=== PATIENT | male | born 1940 | race Caucasian/White ===

== ENCOUNTER 2017-08-02 05:17 | Inpatient (IN) ==
[2017-07-20 14:09] LABS: Basophils # 0.1 10*3/uL (0.0-0.2); Basophils % 0.7 % (0.0-0.8); Eosinophils # 0.5 10*3/uL (0.0-0.87); Eosinophils % 6.1 % (0.00-10.9); Hematocrit 37.7 VOL% (42.0-52.0); Hemoglobin 12.7 GM/DL (14.0-18.0); Immature Granulocytes % 0.4 %; Immature Granulocytes Absolute 0.03 #; Lymphocytes # 1.5 10*3/uL (1.4-4.0); Mean Corpuscular HGB Conc 33.7 GM/DL (32-36); Mean Corpuscular Hemoglobin 31 PG (27-34); Mean Corpuscular Volume 90.4 FL (87-102); Mean Platelet Volume 9.3 FL (9.6-12.0); Monocytes # 0.8 10*3/uL (0.11-0.8); Monocytes % 10.8 % (1.7-12.7); Neutrophils # 4.6 10*3/uL (1.4-7.4); Platelet Count 266 T/CUMM (130-400); Red Blood Count 4.17 MC/CUMM (3.8-5.5); Red Cell Distribution Width 13.6 % (9.3-17.3); White Blood Count 7.4 T/CUMM (4-12)
[2017-07-20 14:39] LABS: Calcium 8.6 MG/DL (8.5-10.1); Osmolality,Calculated 278.5 MOS/KG (273-304)
[2017-07-20 14:51] LABS: Apearance,Urine Clear (Clear); Bilirubin,Urine Negative (Negative); Blood, Urine Large mg/dL (Negative); Glucose,Urine (UA) Negative (Negative); Ketones,Urine Negative (Negative); Nitrite,Urine Negative (Negative); Protein,Urine Negative; RBC,Urine 25-30 /HPF (0-4); Urine Color Yellow (Yellow); Urine Specific Gravity 1.015 (1.001-1.035); Urine Urobilinogen 0.2 EU/DL (0.2-1.0); WBC,Urine 0-3 /HPF (0-6)
[~2017-08-02 05:17] MED LIST: ALBUTEROL/IPRATROPIUM 3 ML NEB RESP TX ONE
[2017-08-02] MEDS ORDERED: GABAPENTIN 400 MG CAPSULE PO ONE (06:00)
[2017-08-02] MEDS ORDERED: IPRATROPIUM 500 MCG/2.5 ML NEB RESP TX ONE (06:00)
[2017-08-02] MEDS ORDERED: SCOPOLAMINE 1.5 MG PATCH TRANSDERM ONE ×2 (06:00→06:18)
[2017-08-02] MEDS ORDERED: cefTRIAXone 1,000 MG in SYRINGE 1 EACH IV ONE (06:00)
[2017-08-02] MEDS ORDERED: DIAZEPAM 5 MG TABLET PO ONE (06:00)
[2017-08-02] MEDS ORDERED: ACETAMINOPHEN 500 MG TABLET PO ONE (06:00)
[2017-08-02] MEDS ORDERED: FAMOTIDINE 20 MG TABLET PO ONE (06:00)
[2017-08-02] MEDS ORDERED: DIAZEPAM 5 MG TABLET ONE (06:17)
[2017-08-02] MEDS ORDERED: ALVIMOPAN 12 MG CAPSULE ONE (06:17)
[2017-08-02] MEDS ORDERED: FAMOTIDINE 20 MG TABLET ONE (06:18)
[2017-08-02] MEDS ORDERED: cefTRIAXone 1,000 MG VIAL ONE (06:18)
[2017-08-02] MEDS ORDERED: ACETAMINOPHEN 500 MG TABLET ONE (06:18)
[2017-08-02] MEDS ORDERED: GABAPENTIN 400 MG CAPSULE ONE (06:29)
[2017-08-02] MEDS: ALVIMOPAN 12 MG CAPSULE PO SCH (06:42)
[2017-08-02] MEDS: LACTATED RINGERS 1,000 ML IV SCH (06:50)
[2017-08-02] MEDS ORDERED: diphenhydrAMINE 50 MG/1 ML VIAL IV PRN (11:05)
[2017-08-02] MEDS ORDERED: ONDANSETRON 4 MG/2 ML VIAL IV PRN (11:05)
[2017-08-02] MEDS ORDERED: HYDROmorphone PCA 30 MG/30 ML SYRINGE IV SCH (11:30)
[2017-08-02] MEDS ORDERED: NALOXONE 0.4 MG/ML VIAL IV PRN (11:50)
[2017-08-02] MEDS: DEXTROSE 5% NACL 0.45% 1,000 ML IV SCH (13:48)
[2017-08-02] MEDS: MORPHINE PCA 30 MG/30 ML SYRINGE IV SCH (13:59)
[2017-08-02] MEDS ORDERED: PROPOFOL 200 MG/20 ML VIAL IV ONE (15:14)
[2017-08-02] MEDS ORDERED: PHENYLEPHRINE 10 MG/1 ML VIAL IV ONE (15:14)
[2017-08-02] MEDS ORDERED: MIDAZOLAM 2 MG/2 ML VIAL ONE (15:14)
[2017-08-02] MEDS ORDERED: SODIUM CHLORIDE 0.9% 100 ML IV ONE (15:14)
[2017-08-02] MEDS ORDERED: SEVOFLURANE 1 UNIT/15 MINUTE INH ONE (15:14)
[2017-08-02] MEDS ORDERED: fentaNYL 100 MCG/2 ML VIAL ONE (15:14)
[2017-08-02] MEDS ORDERED: ONDANSETRON 4 MG/2 ML VIAL ONE (15:14)
[2017-08-02] MEDS ORDERED: ROCURONIUM 100 MG/10 ML VIAL IV ONE (15:14)
[2017-08-02] MEDS ORDERED: NEOSTIGMINE 10 MG/10 ML VIAL ONE (15:14)
[2017-08-02] MEDS ORDERED: GLYCOPYRROLATE 0.4 MG/2 ML VIAL ONE (15:14)
[2017-08-02] MEDS ORDERED: LACTATED RINGERS 1,000 ML IV ONE (15:15)
[2017-08-02] MEDS ORDERED: ALBUTEROL 0.63 MG/3 ML NEB RESP TX SCH (19:00)
[2017-08-02] MEDS: CARVEDILOL 3.125 MG TABLET PO SCH (19:00)
[2017-08-02] MEDS: BUDESONIDE 0.25 MG/2 ML NEB RESP TX SCH (19:36)
[2017-08-02] MEDS: ALBUTEROL/IPRATROPIUM 3 ML NEB RESP TX SCH (19:36)
[2017-08-02] MEDS ORDERED: diphenhydrAMINE CAP 25 MG CAPSULE PO SCH (21:00)
[2017-08-03] MEDS: ALBUTEROL/IPRATROPIUM 3 ML NEB RESP TX SCH ×5 (00:58→23:54)
[2017-08-03] MEDS: AZITHROMYCIN INJ 250 MG in SODIUM CHLORIDE 0.9% 250 ML IV SCH ×2 (02:51→23:23)
[2017-08-03] MEDS: DEXTROSE 5% NACL 0.45% 1,000 ML IV SCH (02:52)
[2017-08-03 06:59] LABS: Basophils % 0.2 % (0.0-0.8); Eosinophils % 0.1 % (0.00-10.9); Hematocrit 36.9 VOL% (42.0-52.0); Hemoglobin 11.9 GM/DL (14.0-18.0); Immature Granulocytes % 0.5 %; Immature Granulocytes Absolute 0.06 #; Lymphocytes # 1.2 10*3/uL (1.4-4.0); Lymphocytes % 10.4 % (21.2-54.2); Mean Corpuscular HGB Conc 32.2 GM/DL (32-36); Mean Corpuscular Hemoglobin 30 PG (27-34); Mean Corpuscular Volume 92.3 FL (87-102); Mean Platelet Volume 10.3 FL (9.6-12.0); Monocytes # 1.4 10*3/uL (0.11-0.8); Monocytes % 12.3 % (1.7-12.7); Neutrophils # 8.9 10*3/uL (1.4-7.4); Neutrophils % 76.5 % (38.7-73.9); Platelet Count 221 T/CUMM (130-400); Red Cell Distribution Width 13.7 % (9.3-17.3); White Blood Count 11.6 T/CUMM (4-12)
[2017-08-03 07:25] LABS: Calcium 7.8 MG/DL (8.5-10.1); Osmolality,Calculated 279.5 MOS/KG (273-304); Potassium 3.6 MMOL/L (3.5-5.1)
[2017-08-03 07:29] LABS: Albumin 3.2 G/DL (3.4-5.0); Bilirubin,Direct 0.17 MG/DL (0.0-0.20); Bilirubin,Indirect 0.5 MG/DL (0.0-1.0); Bilirubin,Total 0.7 MG/DL (0.2-1.0); Total Protein 5.5 G/DL (6.4-8.3)
[2017-08-03] MEDS: BUDESONIDE 0.25 MG/2 ML NEB RESP TX SCH ×2 (07:42→19:15)
[2017-08-03] MEDS: LACTATED RINGERS 1,000 ML IV SCH (08:50)
[2017-08-03] MEDS ORDERED: AZITHROMYCIN 250 MG TABLET PO SCH (09:00)
[2017-08-03] MEDS ORDERED: NON-FORMULARY MEDICATION (Umeclidinium Brm/Vilanterol Tr [Anoro Ellipta] 1 PUFF) INH SCH (09:00)
[2017-08-03] MEDS ORDERED: CHOLECALCIFEROL 1,000 UNIT TABLET PO SCH (09:00)
[2017-08-03] MEDS ORDERED: FOLIC ACID 1 MG TABLET PO SCH (09:00)
[2017-08-03] MEDS ORDERED: PANTOPRAZOLE 40 MG TABLET PO SCH (09:00)
[2017-08-03] MEDS: SERTRALINE 50 MG TABLET PO SCH (09:45)
[2017-08-03] MEDS: CARVEDILOL 3.125 MG TABLET PO SCH ×2 (09:45→17:20)
[2017-08-03] MEDS: SODIUM CHLORIDE 0.9% 1,000 ML IV SCH (09:49)
[2017-08-03] MEDS: MORPHINE PCA 30 MG/30 ML SYRINGE IV SCH (12:14)
[2017-08-03] MEDS: LORATADINE 10 MG TABLET PO SCH (20:02)
[2017-08-03] MEDS: ALVIMOPAN 12 MG CAPSULE PO SCH (20:02)
[2017-08-04] MEDS ORDERED: BISACODYL 10 MG SUPP RECTAL ONE (06:00)
[2017-08-04] MEDS: ALBUTEROL/IPRATROPIUM 3 ML NEB RESP TX SCH ×3 (06:57→19:07)
[2017-08-04] MEDS: BUDESONIDE 0.25 MG/2 ML NEB RESP TX SCH ×2 (06:57→19:08)
[2017-08-04] MEDS ORDERED: oxyCODONE/ACETAMINOPHEN 5-325 MG TABLET PO PRN ×2 (08:08)
[2017-08-04] MEDS ORDERED: MEPERIDINE 50 MG/1 ML VIAL IM PRN (08:10)
[2017-08-04] MEDS: SODIUM CHLORIDE 0.9% 1,000 ML IV SCH (08:14)
[2017-08-04] MEDS: ALVIMOPAN 12 MG CAPSULE PO SCH ×3 (10:37→19:59)
[2017-08-04] MEDS: CARVEDILOL 3.125 MG TABLET PO SCH ×2 (10:37→17:30)
[2017-08-04] MEDS: SERTRALINE 50 MG TABLET PO SCH (10:38)
[2017-08-04] MEDS: LORATADINE 10 MG TABLET PO SCH (19:59)
[2017-08-04] MEDS: AZITHROMYCIN INJ 250 MG in SODIUM CHLORIDE 0.9% 250 ML IV SCH (22:58)
[2017-08-05] MEDS: ALBUTEROL/IPRATROPIUM 3 ML NEB RESP TX SCH ×2 (00:30→07:35)
[2017-08-05 07:11] LABS: Albumin 2.5 G/DL (3.4-5.0); Bilirubin,Total 1.1 MG/DL (0.2-1.0); Calcium 8.2 MG/DL (8.5-10.1); Osmolality,Calculated 279.5 MOS/KG (273-304); Potassium 3.7 MMOL/L (3.5-5.1); Total Protein 5.8 G/DL (6.4-8.3)
[2017-08-05] MEDS: BUDESONIDE 0.25 MG/2 ML NEB RESP TX SCH (07:35)
[2017-08-05] MEDS ORDERED: OXYBUTYNIN XL 10 MG TABLET PO SCH (09:00)
[2017-08-05] MEDS: ALVIMOPAN 12 MG CAPSULE PO SCH (09:27)
[2017-08-05] MEDS: SERTRALINE 50 MG TABLET PO SCH (09:27)
[2017-08-05] MEDS: CARVEDILOL 3.125 MG TABLET PO SCH (09:27)
[2017-08-05 11:43] VITALS: BP 143/69
[2017-08-05] MEDS ORDERED: HEPARIN LOCK FLUSH 500 UNIT/5 ML SYRINGE IV ONE (13:58)
== END 2017-08-05 14:15 | disposition home health service (06) | DRG 657 ==
LOC: N.OR 05:17 → N.SDSINP 05:37 → N.5E 11:05
PROVIDERS: ADMIT Internal Medicine; ATTEND Internal Medicine

== ENCOUNTER 2019-07-22 10:17 | Inpatient (IN) ==
[2019-07-22] MEDS ORDERED: ALBUTEROL 2.5 MG/3 ML NEB RESP TX STA (10:35)
[2019-07-22 10:51] LABS: Basophils % 0.3 % (0.0-0.8); Eosinophils # 0.1 10*3/uL (0.0-0.87); Eosinophils % 1.2 % (0.00-10.9); Hematocrit 38.6 VOL% (42.0-52.0); Hemoglobin 11.9 GM/DL (14.0-18.0); Immature Granulocytes % 0.4 %; Immature Granulocytes Absolute 0.05 #; Lymphocytes # 1.2 10*3/uL (1.4-4.0); Lymphocytes % 9.9 % (21.2-54.2); Mean Corpuscular HGB Conc 30.8 GM/DL (32-36); Mean Platelet Volume 10.2 FL (9.6-12.0); Monocytes % 6.2 % (1.7-12.7); Platelet Count 214 T/CUMM (130-400); Red Blood Count 4.29 MC/CUMM (3.8-5.5); Red Cell Distribution Width 14.7 % (9.3-17.3); White Blood Count 11.6 T/CUMM (4-12)
[2019-07-22 10:56] LABS: ABG Base Excess -1.7 MMOL/L (-2.5-2.5); ABG HCO3 22.9 MMOL/L (20-26); ABG Oxygen Saturation 91.1 % (95-100); ABG PCO2 43.8 MM HG (35-48); ABG PH 7.348 (7.35-7.45); ABG PO2 63.4 MM HG (80-95); ABG TCO2 21.4 MMOL/L (23-27)
[2019-07-22 10:57] LABS: Allen Test Positive
[2019-07-22 11:00] LABS: PT Patient Result 10.4 SECS (9.8-11.9)
[2019-07-22] MEDS ORDERED: PIPERACILLIN/TAZOBACTAM 3,375 MG in SODIUM CHLORIDE 0.9% 100 ML IV STA ×2 (11:23→12:23)
[2019-07-22] MEDS ORDERED: VANCOMYCIN INJ 1,000 MG in SODIUM CHLORIDE 0.9% 250 ML IV STA (11:23)
[2019-07-22 11:25] LABS: Albumin 3.4 G/DL (3.4-5.0); Bilirubin,Total 0.6 MG/DL (0.2-1.0); Calcium 8.3 MG/DL (8.5-10.1); Osmolality,Calculated 271.1 MOS/KG (273-304); Total Protein 6.2 G/DL (6.4-8.3)
[2019-07-22] MEDS ORDERED: MORPHINE 4 MG/1 ML VIAL IV PRN (12:30)
[2019-07-22] MEDS ORDERED: MAGNESIUM SULF RIDER 2 GM in PREMIX 1 EACH IV PRN (12:30)
[2019-07-22] MEDS ORDERED: MAGNESIUM SULF RIDER 4 GM in PREMIX 1 EACH IV PRN (12:30)
[2019-07-22] MEDS ORDERED: ONDANSETRON 4 MG/2 ML VIAL IV PRN (12:30)
[2019-07-22] MEDS ORDERED: PIPERACILLIN/TAZOBACTAM 3,375 MG VIAL IV ONE (12:48)
[2019-07-22] MEDS ORDERED: SODIUM CHLORIDE 0.9% 100 ML IV ONE (12:49)
[2019-07-22] MEDS ORDERED: ALBUTEROL/IPRATROPIUM 3 ML NEB RESP TX SCH (15:00)
[2019-07-22] MEDS ORDERED: ASPIRIN CHEW 81 MG TABLET PO ONE (16:33)
[2019-07-22] MEDS ORDERED: BUDESONIDE 0.25 MG/2 ML NEB RESP TX SCH (19:00)
[2019-07-22] MEDS ORDERED: ENOXAPARIN 40 MG/0.4 ML SYRINGE SUBCUT SCH (21:00)
[2019-07-22] MEDS: carvediloL 6.25 MG TABLET PO SCH (21:55)
[2019-07-22] MEDS: POTASSIUM CHLORIDE 20 MEQ TABLET PO SCH (21:55)
[2019-07-22] MEDS: LORATADINE 10 MG TABLET PO SCH (21:55)
[2019-07-22] MEDS: ALBUTEROL INHALER 8 GM INH SCH (23:20)
[2019-07-23] MEDS: ALBUTEROL INHALER 8 GM INH SCH ×4 (02:07→20:25)
[2019-07-23 05:18] LABS: Risk Ratio 1.93; VLDL CHOLESTEROL 12.8 MG/DL
[2019-07-23] MEDS ORDERED: FUROSEMIDE 40 MG TABLET PO SCH (09:00)
[2019-07-23] MEDS: CYANOCOBALAMIN 500 MCG TABLET PO SCH (10:00)
[2019-07-23] MEDS: OXYBUTYNIN XL 10 MG TABLET PO SCH (10:00)
[2019-07-23] MEDS: SERTRALINE 50 MG TABLET PO SCH (10:00)
[2019-07-23] MEDS: POTASSIUM CHLORIDE 20 MEQ TABLET PO SCH ×2 (10:00→20:24)
[2019-07-23] MEDS: FOLIC ACID 0.4 MG TABLET PO SCH (10:00)
[2019-07-23] MEDS: carvediloL 6.25 MG TABLET PO SCH ×2 (10:00→20:24)
[2019-07-23] MEDS: ASPIRIN EC 81 MG TABLET PO SCH (10:00)
[2019-07-23] MEDS: PANTOPRAZOLE 40 MG TABLET PO SCH (10:00)
[2019-07-23] MEDS ORDERED: FUROSEMIDE 40 MG/4 ML VIAL IV ONE (10:45)
[2019-07-23] MEDS: NON-FORMULARY MEDICATION (Umeclidinium-Vilanterol [Anoro Ellipta] 1 PUFF) INH SCH (12:00)
[2019-07-23] MEDS: cefTRIAXone 1,000 MG in SYRINGE 1 EACH IV SCH (16:44)
[2019-07-23] MEDS: FUROSEMIDE 40 MG/4 ML VIAL IV SCH (16:44)
[2019-07-23] MEDS ORDERED: ENOXAPARIN 40 MG/0.4 ML SYRINGE SUBCUT ONE (17:39)
[2019-07-23] MEDS: DOXYCYCLINE HYCLATE 100 MG CAPSULE PO SCH (20:24)
[2019-07-23] MEDS: LORATADINE 10 MG TABLET PO SCH (20:24)
[2019-07-24] MEDS: ALBUTEROL INHALER 8 GM INH SCH ×4 (00:53→18:37)
[2019-07-24 04:27] LABS: ABG Oxygen Saturation 93.8 % (95-100); ABG PCO2 38.7 MM HG (35-48); ABG PH 7.451 (7.35-7.45); ABG PO2 64.8 MM HG (80-95); Allen Test Positive
[2019-07-24 06:49] LABS: Basophils % 0.6 % (0.0-0.8); Eosinophils # 0.4 10*3/uL (0.0-0.87); Hematocrit 35.9 VOL% (42.0-52.0); Hemoglobin 11.3 GM/DL (14.0-18.0); Immature Granulocytes % 0.4 %; Immature Granulocytes Absolute 0.03 #; Lymphocytes # 1.3 10*3/uL (1.4-4.0); Lymphocytes % 17.5 % (21.2-54.2); Mean Corpuscular HGB Conc 31.5 GM/DL (32-36); Mean Corpuscular Volume 87.8 FL (87-102); Neutrophils % 61.5 % (38.7-73.9); Platelet Count 197 T/CUMM (130-400); Red Blood Count 4.09 MC/CUMM (3.8-5.5); Red Cell Distribution Width 14.7 % (9.3-17.3); White Blood Count 7.2 T/CUMM (4-12)
[2019-07-24 07:02] LABS: Calcium 8.9 MG/DL (8.5-10.1)
[2019-07-24] MEDS: NON-FORMULARY MEDICATION (Umeclidinium-Vilanterol [Anoro Ellipta] 1 PUFF) INH SCH (08:30)
[2019-07-24] MEDS: POTASSIUM CHLORIDE 20 MEQ TABLET PO SCH ×2 (08:30→21:10)
[2019-07-24] MEDS: CHOLECALCIFEROL 5,000 UNIT TABLET PO SCH (08:30)
[2019-07-24] MEDS: SERTRALINE 50 MG TABLET PO SCH (08:30)
[2019-07-24] MEDS: OXYBUTYNIN XL 10 MG TABLET PO SCH (08:30)
[2019-07-24] MEDS: ASPIRIN EC 81 MG TABLET PO SCH (08:30)
[2019-07-24] MEDS: FUROSEMIDE 40 MG/4 ML VIAL IV SCH ×2 (08:30→16:48)
[2019-07-24] MEDS: DOXYCYCLINE HYCLATE 100 MG CAPSULE PO SCH ×2 (08:30→16:48)
[2019-07-24] MEDS: CYANOCOBALAMIN 500 MCG TABLET PO SCH (08:30)
[2019-07-24] MEDS: carvediloL 6.25 MG TABLET PO SCH ×2 (08:30→21:10)
[2019-07-24] MEDS: FOLIC ACID 0.4 MG TABLET PO SCH (08:30)
[2019-07-24] MEDS: PANTOPRAZOLE 40 MG TABLET PO SCH (08:31)
[2019-07-24] MEDS ORDERED: ENOXAPARIN 40 MG/0.4 ML SYRINGE SUBCUT SCH (09:00)
[2019-07-24] MEDS: cefTRIAXone 1,000 MG in SYRINGE 1 EACH IV SCH (16:44)
[2019-07-24] MEDS: LORATADINE 10 MG TABLET PO SCH (21:10)
[2019-07-25] MEDS: ALBUTEROL INHALER 8 GM INH SCH ×3 (01:20→14:26)
[2019-07-25 05:51] LABS: Calcium 8.8 MG/DL (8.5-10.1); Osmolality,Calculated 277.8 MOS/KG (273-304)
[2019-07-25] MEDS: FOLIC ACID 0.4 MG TABLET PO SCH (09:34)
[2019-07-25] MEDS: OXYBUTYNIN XL 10 MG TABLET PO SCH (09:34)
[2019-07-25] MEDS: DOXYCYCLINE HYCLATE 100 MG CAPSULE PO SCH ×2 (09:34→17:19)
[2019-07-25] MEDS: CYANOCOBALAMIN 500 MCG TABLET PO SCH (09:34)
[2019-07-25] MEDS: FUROSEMIDE 40 MG/4 ML VIAL IV SCH ×2 (09:34→17:19)
[2019-07-25] MEDS: PANTOPRAZOLE 40 MG TABLET PO SCH (09:34)
[2019-07-25] MEDS: carvediloL 6.25 MG TABLET PO SCH ×2 (09:34→20:48)
[2019-07-25] MEDS: SERTRALINE 50 MG TABLET PO SCH (09:34)
[2019-07-25] MEDS: NON-FORMULARY MEDICATION (Umeclidinium-Vilanterol [Anoro Ellipta] 1 PUFF) INH SCH (09:34)
[2019-07-25] MEDS: POTASSIUM CHLORIDE 20 MEQ TABLET PO SCH ×2 (09:34→20:48)
[2019-07-25] MEDS: ASPIRIN EC 81 MG TABLET PO SCH (09:44)
[2019-07-25] MEDS ORDERED: MAGNESIUM SULF RIDER 2 GM in PREMIX 1 EACH IV ONE (14:00)
[2019-07-25] MEDS ORDERED: POTASSIUM CHLORIDE 20 MEQ TABLET PO ONE (14:00)
[2019-07-25] MEDS: cefTRIAXone 1,000 MG in SYRINGE 1 EACH IV SCH (14:26)
[2019-07-25] MEDS ORDERED: OXYMETAZOLINE 0.05% NASAL SPRAY 15 ML BOTTLE BOTH NARES PRN (16:38)
[2019-07-25] MEDS ORDERED: HEPARIN LOCK FLUSH 500 UNIT/5 ML SYRINGE IV PRN (18:19)
[2019-07-25] MEDS: LORATADINE 10 MG TABLET PO SCH (20:47)
[2019-07-25] MEDS: ATORVASTATIN 40 MG TABLET PO SCH (20:48)
[2019-07-25] MEDS: HEPARIN LOCK FLUSH 500 UNIT/5 ML SYRINGE IV SCH (21:42)
[2019-07-26] MEDS: ALBUTEROL/IPRATROPIUM 3 ML NEB RESP TX SCH ×4 (06:49→19:32)
[2019-07-26 06:56] LABS: Basophils # 0.1 10*3/uL (0.0-0.2); Basophils % 0.7 % (0.0-0.8); Eosinophils # 0.8 10*3/uL (0.0-0.87); Eosinophils % 9.2 % (0.00-10.9); Hemoglobin 11.9 GM/DL (14.0-18.0); Immature Granulocytes % 0.3 %; Immature Granulocytes Absolute 0.03 #; Lymphocytes # 1.6 10*3/uL (1.4-4.0); Lymphocytes % 17.9 % (21.2-54.2); Mean Corpuscular HGB Conc 31.3 GM/DL (32-36); Mean Corpuscular Volume 90.5 FL (87-102); Mean Platelet Volume 10.7 FL (9.6-12.0); Monocytes % 12.2 % (1.7-12.7); Neutrophils % 59.7 % (38.7-73.9); Platelet Count 250 T/CUMM (130-400); Red Cell Distribution Width 14.8 % (9.3-17.3); White Blood Count 8.7 T/CUMM (4-12)
[2019-07-26 07:18] LABS: Calcium 8.9 MG/DL (8.5-10.1)
[2019-07-26] MEDS: OXYBUTYNIN XL 10 MG TABLET PO SCH (09:08)
[2019-07-26] MEDS: CHOLECALCIFEROL 5,000 UNIT TABLET PO SCH (09:08)
[2019-07-26] MEDS: ASPIRIN EC 81 MG TABLET PO SCH (09:08)
[2019-07-26] MEDS: carvediloL 6.25 MG TABLET PO SCH ×2 (09:08→21:49)
[2019-07-26] MEDS: DOXYCYCLINE HYCLATE 100 MG CAPSULE PO SCH ×2 (09:08→17:03)
[2019-07-26] MEDS: CYANOCOBALAMIN 500 MCG TABLET PO SCH (09:09)
[2019-07-26] MEDS: PANTOPRAZOLE 40 MG TABLET PO SCH (09:09)
[2019-07-26] MEDS: POTASSIUM CHLORIDE 20 MEQ TABLET PO SCH ×2 (09:09→21:49)
[2019-07-26] MEDS: SERTRALINE 50 MG TABLET PO SCH (09:10)
[2019-07-26] MEDS: POTASSIUM CHLORIDE 20 MEQ TABLET PO PRN ×2 (09:10→11:09)
[2019-07-26] MEDS: FUROSEMIDE 40 MG/4 ML VIAL IV SCH ×2 (09:10→15:38)
[2019-07-26] MEDS: FOLIC ACID 0.4 MG TABLET PO SCH (09:10)
[2019-07-26] MEDS: HEPARIN LOCK FLUSH 500 UNIT/5 ML SYRINGE IV SCH ×2 (09:17→21:47)
[2019-07-26] MEDS: NON-FORMULARY MEDICATION (Umeclidinium-Vilanterol [Anoro Ellipta] 1 PUFF) INH SCH (09:17)
[2019-07-26] MEDS: cefTRIAXone 1,000 MG in SYRINGE 1 EACH IV SCH (15:32)
[2019-07-26] MEDS: ATORVASTATIN 40 MG TABLET PO SCH (21:49)
[2019-07-26] MEDS: LORATADINE 10 MG TABLET PO SCH (21:49)
[2019-07-27] MEDS: ALBUTEROL/IPRATROPIUM 3 ML NEB RESP TX SCH ×2 (01:16→07:45)
[2019-07-27 05:58] LABS: Basophils # 0.1 10*3/uL (0.0-0.2); Basophils % 0.8 % (0.0-0.8); Eosinophils % 12.4 % (0.00-10.9); Hematocrit 36.6 VOL% (42.0-52.0); Hemoglobin 11.6 GM/DL (14.0-18.0); Immature Granulocytes % 0.3 %; Immature Granulocytes Absolute 0.02 #; Lymphocytes # 1.5 10*3/uL (1.4-4.0); Lymphocytes % 18.8 % (21.2-54.2); Mean Corpuscular HGB Conc 31.7 GM/DL (32-36); Mean Platelet Volume 10.7 FL (9.6-12.0); Monocytes % 11.3 % (1.7-12.7); Neutrophils % 56.4 % (38.7-73.9); Platelet Count 226 T/CUMM (130-400); Red Blood Count 4.16 MC/CUMM (3.8-5.5); Red Cell Distribution Width 14.7 % (9.3-17.3)
[2019-07-27 07:27] LABS: Calcium 8.9 MG/DL (8.5-10.1); Osmolality,Calculated 281.8 MOS/KG (273-304)
[2019-07-27 08:03] LABS: Band Neutrophils 1 % (0-10); Eosinophils 10 % (0-10); Hypochromasia 2+; Lymphocytes 15 % (20-55); Ovalocytes 1+; Platelet Estimate Normal; Segmented Neutrophils 61 % (50-85); Total Cells Counted 100
[2019-07-27 08:19] VITALS: BP 131/61
[2019-07-27] MEDS: DOXYCYCLINE HYCLATE 100 MG CAPSULE PO SCH (10:01)
[2019-07-27] MEDS: FOLIC ACID 0.4 MG TABLET PO SCH (10:01)
[2019-07-27] MEDS: ASPIRIN EC 81 MG TABLET PO SCH (10:02)
[2019-07-27] MEDS: NON-FORMULARY MEDICATION (Umeclidinium-Vilanterol [Anoro Ellipta] 1 PUFF) INH SCH (10:02)
[2019-07-27] MEDS: PANTOPRAZOLE 40 MG TABLET PO SCH (10:02)
[2019-07-27] MEDS: carvediloL 6.25 MG TABLET PO SCH (10:02)
[2019-07-27] MEDS: CYANOCOBALAMIN 500 MCG TABLET PO SCH (10:02)
[2019-07-27] MEDS: HEPARIN LOCK FLUSH 500 UNIT/5 ML SYRINGE IV SCH (10:04)
[2019-07-27] MEDS: POTASSIUM CHLORIDE 20 MEQ TABLET PO SCH (10:09)
[2019-07-27] MEDS: OXYBUTYNIN XL 10 MG TABLET PO SCH (10:09)
[2019-07-27] MEDS: SERTRALINE 50 MG TABLET PO SCH (10:10)
[2019-07-27] MEDS: FUROSEMIDE 40 MG/4 ML VIAL IV SCH (10:12)
[2019-07-27] MEDS ORDERED: FUROSEMIDE 40 MG TABLET PO SCH (16:00)
== END 2019-07-27 11:39 | disposition home health service (06) | DRG 280 ==
LOC: N.ED 10:17 → N.EDINP 12:30 → N.2E 12:53 → N.TELES 07-25 16:31
PROVIDERS: ADMIT Internal Medicine; ATTEND Internal Medicine

== ENCOUNTER 2021-06-04 08:18 | Inpatient (IN) ==
[2021-06-04] MEDS ORDERED: DEXAMETHASONE 4 MG/1 ML VIAL IV STA (08:57)
[2021-06-04 09:19] LABS: Basophils % 0.3 % (0.0-0.8); Eosinophils # 0.2 10*3/uL (0.0-0.87); Eosinophils % 1.6 % (0.00-10.9); Hematocrit 43.1 VOL% (42.0-52.0); Hemoglobin 14.2 GM/DL (14.0-18.0); Immature Granulocytes % 0.4 %; Immature Granulocytes Absolute 0.04 #; Lymphocytes # 1.4 10*3/uL (1.4-4.0); Lymphocytes % 13.7 % (21.2-54.2); Mean Corpuscular HGB Conc 32.9 GM/DL (32-36); Mean Corpuscular Volume 94.7 FL (87-102); Mean Platelet Volume 9.9 FL (9.6-12.0); Monocytes % 6.9 % (1.7-12.7); Neutrophils % 77.1 % (38.7-73.9); Platelet Count 199 T/CUMM (130-400); Red Blood Count 4.55 MC/CUMM (3.8-5.5); Red Cell Distribution Width 13.3 % (9.3-17.3); White Blood Count 10.2 T/CUMM (4-12)
[2021-06-04] MEDS ORDERED: DOXYCYCLINE HYCLATE INJ 100 MG in SODIUM CHLORIDE 0.9% 100 ML IV STA (09:22)
[2021-06-04] MEDS ORDERED: cefTRIAXone 1,000 MG in SODIUM CHLORIDE 0.9% 100 ML IV STA (09:22)
[2021-06-04 10:41] LABS: Albumin 3.4 G/DL (3.4-5.0); Bilirubin,Total 0.6 MG/DL (0.20-1.00); Calcium 8.6 MG/DL (8.5-10.1); Osmolality,Calculated 279.4 MOS/KG (273-304); Total Protein 6.2 G/DL (6.4-8.2)
[2021-06-04] MEDS ORDERED: FUROSEMIDE 40 MG/4 ML VIAL IV STA (11:14)
[2021-06-04] MEDS ORDERED: ONDANSETRON 4 MG/2 ML VIAL IV PRN (11:27)
[2021-06-04] MEDS ORDERED: ALBUTEROL/IPRATROPIUM 3 ML NEB RESP TX ONE (11:49)
[2021-06-04] MEDS: ALBUTEROL/IPRATROPIUM 3 ML NEB RESP TX SCH ×2 (12:00→20:38)
[2021-06-04] MEDS: methylPREDNISolone SOD SUC 40 MG/1 ML VIAL IV SCH ×2 (22:00→23:05)
[2021-06-04] MEDS: carvediloL 6.25 MG TABLET PO SCH ×2 (22:00→23:05)
[2021-06-04] MEDS: LORATADINE 10 MG TABLET PO SCH (23:05)
[2021-06-05] MEDS: ALBUTEROL/IPRATROPIUM 3 ML NEB RESP TX SCH ×4 (00:10→19:07)
[2021-06-05 06:26] LABS: Albumin 3.3 G/DL (3.4-5.0); Bilirubin,Total 0.8 MG/DL (0.20-1.00); Calcium 8.9 MG/DL (8.5-10.1); Osmolality,Calculated 283.7 MOS/KG (273-304); Potassium 4.1 MMOL/L (3.5-5.1); Total Protein 6.6 G/DL (6.4-8.2)
[2021-06-05 06:39] LABS: Basophils % 0.1 % (0.0-0.8); Hemoglobin 13.8 GM/DL (14.0-18.0); Immature Granulocytes % 0.5 %; Immature Granulocytes Absolute 0.04 #; Lymphocytes % 12.2 % (21.2-54.2); Mean Corpuscular HGB Conc 33.7 GM/DL (32-36); Mean Corpuscular Volume 92.1 FL (87-102); Mean Platelet Volume 10.2 FL (9.6-12.0); Neutrophils % 85.2 % (38.7-73.9); Platelet Count 198 T/CUMM (130-400); Red Blood Count 4.45 MC/CUMM (3.8-5.5); Red Cell Distribution Width 13.4 % (9.3-17.3)
[2021-06-05] MEDS: BUDESONIDE 0.25 MG/2 ML NEB RESP TX SCH ×2 (07:40→19:07)
[2021-06-05] MEDS ORDERED: ENOXAPARIN 80 MG/0.8 ML SYRINGE SUBCUT SCH (08:00)
[2021-06-05] MEDS: methylPREDNISolone SOD SUC 40 MG/1 ML VIAL IV SCH ×2 (08:40→21:04)
[2021-06-05] MEDS: OXYBUTYNIN XL 10 MG TABLET PO SCH (08:40)
[2021-06-05] MEDS: carvediloL 6.25 MG TABLET PO SCH ×2 (08:40→21:03)
[2021-06-05] MEDS: MONTELUKAST 10 MG TABLET PO SCH (08:40)
[2021-06-05] MEDS: POTASSIUM CHLORIDE 20 MEQ TABLET PO SCH ×2 (08:40→21:03)
[2021-06-05] MEDS: PANTOPRAZOLE 40 MG TABLET PO SCH (08:40)
[2021-06-05] MEDS: cefTRIAXone 1,000 MG in SODIUM CHLORIDE 0.9% 100 ML IV SCH (08:41)
[2021-06-05 08:47] LABS: CKMB % 3.5 %
[2021-06-05 08:52] LABS: High Sensitive Troponin I* 3175.6 ng/L (0-78)
[2021-06-05] MEDS ORDERED: FUROSEMIDE 40 MG/4 ML VIAL IV SCH (09:00)
[2021-06-05] MEDS: LORATADINE 10 MG TABLET PO SCH (21:03)
[2021-06-06] MEDS: ALBUTEROL/IPRATROPIUM 3 ML NEB RESP TX SCH ×2 (00:30→07:20)
[2021-06-06] MEDS: BUDESONIDE 0.25 MG/2 ML NEB RESP TX SCH (07:20)
[2021-06-06 08:43] VITALS: BP 127/78
[2021-06-06] MEDS ORDERED: DAPAGLIFLOZIN 10 MG TABLET PO SCH (09:00)
[2021-06-06] MEDS ORDERED: SPIRONOLACTONE 25 MG TABLET PO SCH (09:00)
[2021-06-06] MEDS ORDERED: VALSARTAN 80 MG TABLET PO SCH (09:00)
[2021-06-06] MEDS ORDERED: ASPIRIN EC 81 MG TABLET PO SCH (09:00)
[2021-06-06] MEDS: PANTOPRAZOLE 40 MG TABLET PO SCH (09:04)
[2021-06-06] MEDS: POTASSIUM CHLORIDE 20 MEQ TABLET PO SCH (09:04)
[2021-06-06] MEDS: methylPREDNISolone SOD SUC 40 MG/1 ML VIAL IV SCH (09:05)
[2021-06-06] MEDS: MONTELUKAST 10 MG TABLET PO SCH (09:05)
[2021-06-06] MEDS: OXYBUTYNIN XL 10 MG TABLET PO SCH (09:05)
[2021-06-06] MEDS: cefTRIAXone 1,000 MG in SODIUM CHLORIDE 0.9% 100 ML IV SCH (09:05)
[2021-06-06] MEDS: carvediloL 6.25 MG TABLET PO SCH (09:09)
[2021-06-06] MEDS ORDERED: HEPARIN LOCK FLUSH 500 UNIT/5 ML SYRINGE IV ONE (10:56)
== END 2021-06-06 11:31 | disposition home or self-care (01) | DRG 291 ==
LOC: N.ED 08:18 → N.EDINP 11:27 → N.TELEN 22:18
PROVIDERS: ADMIT Internal Medicine; ATTEND Internal Medicine

== ENCOUNTER 2022-04-23 08:44 | Inpatient (IN) ==
[2022-04-23 09:46] LABS: Basophils % 0.3 % (0.0-0.8); Eosinophils # 0.2 10*3/uL (0.0-0.87); Eosinophils % 1.8 % (0.00-10.9); Hematocrit 41.8 VOL% (42.0-52.0); Hemoglobin 13.9 GM/DL (14.0-18.0); Immature Granulocytes % 0.3 %; Immature Granulocytes Absolute 0.03 #; Lymphocytes # 1.1 10*3/uL (1.4-4.0); Mean Corpuscular HGB Conc 33.3 GM/DL (32-36); Mean Corpuscular Volume 93.9 FL (87-102); Mean Platelet Volume 10.1 FL (9.6-12.0); Monocytes # 0.6 10*3/uL (0.11-0.8); Monocytes % 6.4 % (1.7-12.7); Neutrophils % 78.2 % (38.7-73.9); Platelet Count 195 T/CUMM (130-400); Red Blood Count 4.45 MC/CUMM (3.8-5.5); Red Cell Distribution Width 13.2 % (9.3-17.3); White Blood Count 8.8 T/CUMM (4-12)
[2022-04-23 10:08] LABS: Albumin 3.5 G/DL (3.4-5.0); Bilirubin,Total 0.7 MG/DL (0.20-1.00); Calcium 8.7 MG/DL (8.5-10.1); Osmolality,Calculated 278.7 MOS/KG (273-304); Potassium 4.4 MMOL/L (3.5-5.1); Total Protein 6.1 G/DL (6.4-8.2)
[2022-04-23] MEDS ORDERED: FUROSEMIDE 40 MG/4 ML VIAL IV STA (10:41)
[2022-04-23] MEDS ORDERED: ONDANSETRON 4 MG/2 ML VIAL IV PRN (10:53)
[2022-04-23] MEDS ORDERED: ACETAMINOPHEN 325 MG TABLET PO PRN (10:53)
[2022-04-23] MEDS ORDERED: FUROSEMIDE 40 MG/4 ML VIAL IV ONE (16:30)
[2022-04-23] MEDS: cefTRIAXone 1,000 MG in SODIUM CHLORIDE 0.9% 100 ML IV SCH (18:13)
[2022-04-23] MEDS: ALBUTEROL/IPRATROPIUM 3 ML NEB RESP TX SCH (19:36)
[2022-04-23] MEDS: ENOXAPARIN 40 MG/0.4 ML SYRINGE SUBCUT SCH (21:15)
[2022-04-23] MEDS: carvediloL 6.25 MG TABLET PO SCH (21:15)
[2022-04-23] MEDS: DOCUSATE SODIUM 100 MG CAPSULE PO SCH (21:15)
[2022-04-23] MEDS: QUEtiapine 25 MG TABLET PO SCH (21:16)
[2022-04-23] MEDS: SERTRALINE 100 MG TABLET PO SCH (21:16)
[2022-04-24 05:14] LABS: Calcium 8.7 MG/DL (8.5-10.1); Osmolality,Calculated 285.1 MOS/KG (273-304); Potassium 3.7 MMOL/L (3.5-5.1)
[2022-04-24] MEDS: PANTOPRAZOLE 40 MG TABLET PO SCH (06:37)
[2022-04-24] MEDS: ALBUTEROL/IPRATROPIUM 3 ML NEB RESP TX SCH ×3 (07:20→20:18)
[2022-04-24] MEDS ORDERED: DOXAZOSIN 1 MG TABLET PO SCH (09:00)
[2022-04-24] MEDS: CLARITHROMYCIN 500 MG TABLET PO SCH (10:14)
[2022-04-24] MEDS: FUROSEMIDE 40 MG/4 ML VIAL IV SCH (10:14)
[2022-04-24] MEDS: MONTELUKAST 10 MG TABLET PO SCH (10:14)
[2022-04-24] MEDS: carvediloL 6.25 MG TABLET PO SCH ×2 (10:14→20:43)
[2022-04-24] MEDS: OXYBUTYNIN XL 10 MG TABLET PO SCH (10:14)
[2022-04-24] MEDS: ASPIRIN EC 81 MG TABLET PO SCH (10:15)
[2022-04-24] MEDS: DOCUSATE SODIUM 100 MG CAPSULE PO SCH ×2 (10:15→20:42)
[2022-04-24] MEDS: LORATADINE 10 MG TABLET PO SCH (10:15)
[2022-04-24] MEDS: QUEtiapine 25 MG TABLET PO SCH ×2 (10:15→20:43)
[2022-04-24] MEDS: cefTRIAXone 1,000 MG in SODIUM CHLORIDE 0.9% 100 ML IV SCH (18:15)
[2022-04-24] MEDS: ENOXAPARIN 40 MG/0.4 ML SYRINGE SUBCUT SCH (20:43)
[2022-04-24] MEDS: SERTRALINE 100 MG TABLET PO SCH (20:43)
[2022-04-25] MEDS: ALBUTEROL/IPRATROPIUM 3 ML NEB RESP TX SCH ×4 (01:18→19:25)
[2022-04-25 04:29] LABS: Basophils % 0.3 % (0.0-0.8); Eosinophils # 0.3 10*3/uL (0.0-0.87); Eosinophils % 4.5 % (0.00-10.9); Hematocrit 41.3 VOL% (42.0-52.0); Hemoglobin 13.5 GM/DL (14.0-18.0); Immature Granulocytes % 0.1 %; Immature Granulocytes Absolute 0.01 #; Lymphocytes # 1.3 10*3/uL (1.4-4.0); Lymphocytes % 17.3 % (21.2-54.2); Mean Corpuscular HGB Conc 32.7 GM/DL (32-36); Mean Platelet Volume 10.1 FL (9.6-12.0); Monocytes # 0.7 10*3/uL (0.11-0.8); Monocytes % 9.5 % (1.7-12.7); Neutrophils % 68.3 % (38.7-73.9); Platelet Count 169 T/CUMM (130-400); Red Cell Distribution Width 13.3 % (9.3-17.3); White Blood Count 7.57 T/CUMM (4-12)
[2022-04-25 05:07] LABS: Calcium 8.4 MG/DL (8.5-10.1); Potassium 3.5 MMOL/L (3.5-5.1)
[2022-04-25] MEDS: PANTOPRAZOLE 40 MG TABLET PO SCH (06:02)
[2022-04-25] MEDS: DOCUSATE SODIUM 100 MG CAPSULE PO SCH ×2 (08:38→20:59)
[2022-04-25] MEDS: FUROSEMIDE 40 MG/4 ML VIAL IV SCH (08:38)
[2022-04-25] MEDS: ASPIRIN EC 81 MG TABLET PO SCH (08:38)
[2022-04-25] MEDS: QUEtiapine 25 MG TABLET PO SCH ×2 (08:38→20:59)
[2022-04-25] MEDS: carvediloL 6.25 MG TABLET PO SCH ×2 (08:38→20:59)
[2022-04-25] MEDS: CLARITHROMYCIN 500 MG TABLET PO SCH (08:38)
[2022-04-25] MEDS: LORATADINE 10 MG TABLET PO SCH (08:38)
[2022-04-25] MEDS: MONTELUKAST 10 MG TABLET PO SCH (08:38)
[2022-04-25] MEDS: OXYBUTYNIN XL 10 MG TABLET PO SCH (08:38)
[2022-04-25] MEDS: methylPREDNISolone SOD SUC 40 MG/1 ML VIAL IV SCH ×2 (10:41→21:00)
[2022-04-25] MEDS: cefTRIAXone 1,000 MG in SODIUM CHLORIDE 0.9% 100 ML IV SCH (16:20)
[2022-04-25] MEDS: ENOXAPARIN 40 MG/0.4 ML SYRINGE SUBCUT SCH (20:59)
[2022-04-25] MEDS: SERTRALINE 100 MG TABLET PO SCH (20:59)
[2022-04-26] MEDS: ALBUTEROL/IPRATROPIUM 3 ML NEB RESP TX SCH ×3 (00:39→13:25)
[2022-04-26] MEDS: PANTOPRAZOLE 40 MG TABLET PO SCH (05:55)
[2022-04-26] MEDS: ASPIRIN EC 81 MG TABLET PO SCH (09:48)
[2022-04-26] MEDS: OXYBUTYNIN XL 10 MG TABLET PO SCH (09:48)
[2022-04-26] MEDS: MONTELUKAST 10 MG TABLET PO SCH (09:48)
[2022-04-26] MEDS: CLARITHROMYCIN 500 MG TABLET PO SCH (09:48)
[2022-04-26] MEDS: LORATADINE 10 MG TABLET PO SCH (09:48)
[2022-04-26] MEDS: QUEtiapine 25 MG TABLET PO SCH (09:48)
[2022-04-26] MEDS: carvediloL 6.25 MG TABLET PO SCH (09:48)
[2022-04-26] MEDS: FUROSEMIDE 40 MG/4 ML VIAL IV SCH (09:49)
[2022-04-26] MEDS: methylPREDNISolone SOD SUC 40 MG/1 ML VIAL IV SCH (09:49)
[2022-04-26] MEDS: DOCUSATE SODIUM 100 MG CAPSULE PO SCH (11:28)
[2022-04-26 16:10] VITALS: BP 146/77
[2022-04-26] MEDS: cefTRIAXone 1,000 MG in SODIUM CHLORIDE 0.9% 100 ML IV SCH (17:18)
== END 2022-04-26 17:24 | disposition home health service (06) | DRG 291 ==
LOC: N.ED 08:44 → N.TELEN 10:53
PROVIDERS: ADMIT Internal Medicine; ATTEND Internal Medicine